=== PATIENT | female | born 1995 | race African-American/Black ===

== ENCOUNTER 2017-09-19 21:13 | Emergency (ER) | payer OTHER, MEDICAID ==
[~2017-09-19] VITALS: Ht 167.6 cm; Wt 75.0 kg
[2017-09-19 21:52] VITALS: BP 133/48
== END 2017-09-20 01:35 | disposition left against medical advice (07) ==
LOC: ER 22:16
DX: M79.1 Myalgia (principal); Z53.21 Procedure and treatment not carried out due to patient leaving prior to being seen by health care provider

== ENCOUNTER 2018-09-02 07:36 | Inpatient (IN) | payer OTHER, MEDICAID ==
[~2018-09-02] VITALS: Ht 162.6 cm; Wt 72.6 kg
[2018-09-02] MEDS ORDERED: MORPHINE SULFATE 4 MG/ML CPJ (NOT FOR IM USE) IV STA (10:25)
[2018-09-02] MEDS ORDERED: MAGNESIUM/ALUMINUM HYDROXIDE/SIMETHICONE 30ML UDC PO STA (10:25)
[2018-09-02] MEDS ORDERED: METOCLOPRAMIDE HCL 10MG/2ML VIAL IV STA (10:25)
[2018-09-02] MEDS ORDERED: ONDANSETRON HCL 4MG/2ML INJ IV STA (10:25)
[2018-09-02 10:46] LABS: BASOPHILS % 0.3 % (0.0-2.0); EOSINOPHILS % 0.6 % (0.0-5.0); LYMPHOCYTES % 13.2 % (20.0-50.0); MEAN CORPUSCULAR HEMOGLOBIN 16.8 pg (28.0-32.0); MEAN CORPUSCULAR VOLUME 55.6 fL (81.0-99.0); MEAN PLATELET VOLUME 8.2 fl (7.4-10.4); MONOCYTES % 4.7 % (2.0-8.0); NEUTROPHILS % 81.2 % (40.0-76.0); PLATELET 439 x1000/uL (130-400); RED BLOOD CELL COUNT 3.44 mill/uL (4.2-5.4); RED CELL DISTRIBUTION WIDTH 20.2 % (11.6-14.6)
[2018-09-02 10:50] LABS: CHLORIDE 111 mEq/L (98-107)
[2018-09-02 10:52] LABS: PROTHROMBIN TIME 10.7 sec (9.6-11.0)
[2018-09-02 10:53] LABS: HEMOGLOBIN. 5.8 g/dL (12.0-16.0)
[2018-09-02 10:54] LABS: HEMATOCRIT. 19.1 % (36.0-48.0)
[2018-09-02 11:01] LABS: HCG SCREEN NEGATIVE
[2018-09-02 11:20] LABS: PLATELET ESTIMATE SLIGHTLY INCREASED
[2018-09-02 11:21] LABS: CLARITY URINE CLEAR (CLEAR); COLOR URINE YELLOW (YELLOW); KETONES URINE NEGATIVE (NEGATIVE); LEUKOCYTE ESTERASE URINE NEGATIVE (NEGATIVE); NITRITE URINE NEGATIVE (NEGATIVE); OCCULT BLOOD URINE 1+ (NEGATIVE); PROTEIN URINE 1+ (NEGATIVE); SPECIFIC GRAVITY URINE 1.014 (1.005-1.030); UROBILINOGEN URINE 0.2 E.U./dL (0.2-1.0)
[2018-09-02] MEDS ORDERED: ACETAMINOPHEN 500MG TABLET PO ONE (14:30)
[2018-09-02] MEDS ORDERED: AMOXICILLIN/POTASSIUM CLAVULANATE 875/125MG TAB PO ONE (14:30)
[2018-09-02] MEDS ORDERED: IOHEXOL-300 100 ML BOTTLE ONE (14:45)
[2018-09-02] MEDS ORDERED: ONDANSETRON HCL 4MG/2ML INJ IV ONE (16:30)
[2018-09-02] MEDS ORDERED: MORPHINE SULFATE 4 MG/ML CPJ (NOT FOR IM USE) IV ONE (16:30)
[2018-09-02] MEDS ORDERED: ONDANSETRON HCL 4MG/2ML INJ IV PRN (16:45)
[2018-09-02] MEDS ORDERED: ACETAMINOPHEN 650MG SUPP PR PRN (16:45)
[2018-09-02] MEDS ORDERED: IPRATROPIUM/ALBUTEROL 0.5-3(2.5)MG/3ML NEB INH PRN (16:45)
[2018-09-02] MEDS ORDERED: DIPHENHYDRAMINE 50MG/ML VIAL IV PRN (16:45)
[2018-09-02] MEDS ORDERED: MORPHINE SULFATE 2 MG/ML CPJ (NOT FOR IM USE) IV PRN (16:45)
[2018-09-02] MEDS: PANTOPRAZOLE SODIUM 40 MG/VIAL IV SCH ×2 (17:55→22:55)
[2018-09-02] MEDS ORDERED: ACETAMINOPHEN 650MG/20.3ML UDC PO ONE (18:30)
[2018-09-02 20:00] VITALS: BP 118/65
[2018-09-02] MEDS ORDERED: DEXT 5%/0.45% NACL 1000ML 1,000 ML IV SCH (21:30)
[2018-09-02 22:00] VITALS: BP 116/57
[2018-09-02] MEDS: METRONIDAZOLE 500 MG PREMIX 100 ML IV SCH (22:55)
[2018-09-02] MEDS ORDERED: LEVOFLOXACIN 500MG PREMIX 100 ML IV SCH (23:00)
[2018-09-03] VITALS: BP 101/53
[2018-09-03 00:18] LABS: HEMATOCRIT 23.8 % (36.0-48.0); HEMOGLOBIN 7.6 g/dL (12.0-16.0)
[2018-09-03 00:30] LABS: TOTAL IRON BINDING CAPACITY 364 ug/dL (250-450)
[2018-09-03 04:00] VITALS: BP 112/58
[2018-09-03] MEDS: METRONIDAZOLE 500 MG PREMIX 100 ML IV SCH ×2 (06:35→14:48)
[2018-09-03 06:54] LABS: BASOPHILS % 0.4 % (0.0-2.0); EOSINOPHILS % 0.4 % (0.0-5.0); HEMATOCRIT. 25.4 % (36.0-48.0); LYMPHOCYTES % 10.4 % (20.0-50.0); MEAN CORPUSCULAR VOLUME 63.5 fL (81.0-99.0); MEAN PLATELET VOLUME 8.7 fl (7.4-10.4); MONOCYTES % 4.1 % (2.0-8.0); NEUTROPHILS % 84.7 % (40.0-76.0); PLATELET 437 x1000/uL (130-400); RED CELL DISTRIBUTION WIDTH 32.5 % (11.6-14.6)
[2018-09-03 07:06] LABS: CHLORIDE 111 mEq/L (98-107)
[2018-09-03 07:13] LABS: LDL CHOLESTEROL 58 mg/dL (5-100)
[2018-09-03 07:14] LABS: HDL CHOLESTEROL 70 mg/dL (40-59)
[2018-09-03 07:17] LABS: TOTAL IRON BINDING CAPACITY 366 ug/dL (250-450)
[2018-09-03 07:18] LABS: T4 FREE 1.07 ng/dL (0.76-1.46)
[2018-09-03 08:00] VITALS: BP 110/69
[2018-09-03] MEDS ORDERED: MEDROXYPROGESTERONE ACETATE 150MG/ML VIAL IM SCH (09:00)
[2018-09-03 09:18] LABS: METHADONE URINE SCREEN NEGATIVE (NEGATIVE)
[2018-09-03 09:19] LABS: OPIATES URINE SCREEN NEGATIVE (NEGATIVE); PHENCYCLIDINE URINE SCREEN NEGATIVE (NEGATIVE)
[2018-09-03 09:20] LABS: *AMPHETAMINES SCREEN URINE NEGATIVE (NEGATIVE); *BARBITURATES SCREEN URINE NEGATIVE (NEGATIVE); *BENZODIAZEPINES SCREEN URINE NEGATIVE (NEGATIVE); *COCAINE SCREEN URINE NEGATIVE (NEGATIVE)
[2018-09-03 09:24] LABS: CANNABINOID URINE SCREEN PRESUMTIVE POSITIVE (NEGATIVE)
[2018-09-03] MEDS: PANTOPRAZOLE SODIUM 40 MG/VIAL IV SCH (09:42)
[2018-09-03 16:00] VITALS: BP 106/56
[2018-09-03 16:23] LABS: HEMATOCRIT 26.8 % (36.0-48.0); HEMOGLOBIN 8.4 g/dL (12.0-16.0)
[2018-09-03] MEDS ORDERED: FERROUS SULFATE 325MG TABLET PO SCH (17:50)
[2018-09-03 18:36] VITALS: BP 106/56
[2018-09-03] MEDS ORDERED: LEVOFLOXACIN 500MG PREMIX 100 ML IV SCH (21:00)
[2018-09-03] MEDS ORDERED: METRONIDAZOLE 500 MG PREMIX 100 ML IV SCH (22:00)
== END 2018-09-03 19:10 | disposition home or self-care (01) | DRG 812 ==
LOC: ER 07:36 → 6EST 16:01 → ENRESERV 17:51
PROVIDERS: ADMIT Internal Medicine; ATTEND Internal Medicine
PROC: 30233N1 Transfusion of Nonautologous Red Blood Cells into Peripheral Vein, Percutaneous Approach (ICD-10-PCS; principal; 2018-09-02)
DX: D50.9 Iron deficiency anemia, unspecified (principal); N92.0 Excessive and frequent menstruation with regular cycle; K52.9 Noninfective gastroenteritis and colitis, unspecified; E86.0 Dehydration; K25.9 Gastric ulcer, unspecified as acute or chronic, without hemorrhage or perforation; R51 Headache; Z72.0 Tobacco use
CPT/HCPCS: 36415; 74177; 76830; 76856; 80061; 80305; 82728; 83540; 83550; 84439; 84443; 84703; 85014; 85018; 86850; 86900; 86920; 93970; 96374; 96375; 99291; C9113; J1050; J1956; J2270; J2405; J2765; J3490; J7040; J7042; P9016; Q9967

== ENCOUNTER 2024-02-11 05:18 | Emergency (ER) | payer MEDICAID, OTHER ==
[~2024-02-11] VITALS: Ht 162.6 cm; Wt 68.0 kg
[2024-02-11 05:27] VITALS: O2SAT 98
[2024-02-11 05:55] LABS: HEMATOCRIT. 27.3 % (36.0-48.0); HEMOGLOBIN. 8.5 g/dL (12.0-16.0); MEAN CORPUSCULAR HEMOGLOBIN 19.8 pg (28.0-32.0); MEAN CORPUSCULAR HGB CONC 31.1 g/dL (31.0-37.0); MEAN CORPUSCULAR VOLUME 63.6 fL (81.0-99.0); MEAN PLATELET VOLUME 8.4 fl (7.4-10.4); PLATELET 337 x1000/uL (130-400); RED BLOOD CELL COUNT 4.29 mill/uL (4.2-5.4); RED CELL DISTRIBUTION WIDTH 20.9 % (11.6-14.6); WHITE BLOOD COUNT 4.7 x1000/uL (4.5-11.0)
[2024-02-11 06:07] LABS: CHLORIDE 113 mEq/L (98-107); POTASSIUM 3.4 mEq/L (3.5-5.1); SODIUM 144 mEq/L (136-145)
[2024-02-11 06:08] LABS: CALCIUM 8.7 mg/dL (8.7-10.4); CARBON DIOXIDE 25 mEq/L (21-32)
[2024-02-11 06:13] LABS: CREATININE 0.8 mg/dL (0.6-1.0); GLUCOSE 93 mg/dL (70-105); UREA NITROGEN BLOOD 10 mg/dL (9-23)
[2024-02-11 06:42] LABS: DIFFERENTIAL COMMENT 1
[2024-02-11] MEDS: IBUPROFEN 600MG TABLET PO ONE (06:45)
[2024-02-11] MEDS ORDERED: AMOX-494 MT (06:48)
[2024-02-11] MEDS ORDERED: FERR-71 MT (06:48)
[2024-02-11] MEDS ORDERED: SENN-215 MT (06:49)
[2024-02-11 06:59] LABS: HCG SCREEN NEGATIVE
[2024-02-11 07:16] VITALS: BP 133/65; PULSE 70; RESP 16; TEMP 37.11408; O2SAT 98
[2024-02-11 08:00] LABS: ANISOCYTOSIS 2+; PLATELET ESTIMATE NORMAL
[2024-02-11 08:01] LABS: MICROCYTOSIS 4+
== END 2024-02-11 07:18 | disposition home or self-care (01) ==
LOC: ER 05:45
DX: J18.9 Pneumonia, unspecified organism (principal); D64.9 Anemia, unspecified; Z20.822 Contact with and (suspected) exposure to COVID-19
CPT/HCPCS: 36415; 71045; 80048; 84703; 85025; 87426; 93005; 99285